=== PATIENT | female | born 1980 | race Caucasian/White ===

== ENCOUNTER 2019-11-02 14:09 | Emergency (ER) | payer OTHER ==
[~2019-11-02] VITALS: Ht 162.6 cm; Wt 72.6 kg
[2019-11-02 14:23] VITALS: Ht 162.6 cm; Wt 72.6 kg
[2019-11-02 16:20] LABS: CALCIUM 8.7 mg/dL (8.5-10.1); CARBON DIOXIDE 24.5 mmol/L (21-32); CHLORIDE SERUM 102 mmol/L (98-107); CREATININE SERUM 0.5 mg/dL (0.6-1.0); GFR1 > 60 mL/min; GLUCOSE SERUM 94 mg/dL (74-106); POTASSIUM SERUM 3.7 mmol/L (3.5-5.1); SODIUM SERUM 134 mmol/L (136-145)
[2019-11-02 16:34] LABS: ALKALINE PHOSPHATASE 56 U/L (46-116); ALT/SGPT 14 U/L (14-59); AST/SGOT 15 U/L (15-37); BILIRUBIN TOTAL 0.35 mg/dL (0.20-1.00); TOTAL PROTEIN, SERUM 7.2 g/dL (6.4-8.2)
[2019-11-02 16:43] LABS: ALBUMIN 3.2 g/dL (3.4-5.0)
[2019-11-02 17:03] VITALS: BP 132/79
== END 2019-11-02 19:20 | disposition home or self-care (01) ==
LOC: ED 14:09
PROVIDERS: Emergency Medicine
DX: G40.909 Epilepsy, unspecified, not intractable, without status epilepticus (principal)
CPT/HCPCS: 36415; G0480; J7030